=== PATIENT | male | born 1960 | race Caucasian/White ===

== ENCOUNTER 2018-01-02 06:50 | Emergency (ER) | payer BC, SELFPAY ==
[2018-01-02] MEDS ORDERED: Fentanyl 100 MCG/2 ML VIAL ONE ×3 (06:57→07:24)
[2018-01-02] MEDS ORDERED: fentaNYL Citrate/PF 2,000 MCG in Sodium Chloride 0.9% 60 ML IV SCH (07:00)
[2018-01-02 07:13] LABS: #Basophils 0.1 thou/uL (0.0-0.2); #Eosinphils 0.2 thou/uL (0.0-0.7); #Lymphocytes 2.3 thou/uL (1.20-3.40); #Monocytes 0.3 thou/uL (0.11-0.59); #Neutrophils 9.4 thou/uL (1.40-6.50); %Basophils 0.7 % (0.0-1.0); %Eosinophils 1.8 % (0.0-10.0); %Lymphocytes 18.7 % (21.0-51.0); %Monocytes 2.3 % (0.0-10.0); %Neutrophils 76.5 % (42.0-75.0); Hemoglobin 17.6 g/dL (14.0-18.0); Mean Corpuscular HGB CONC 35.8 g/dL (32.0-36.0); Mean Corpuscular Volume 94.8 fL (78.0-98.0); Mean Platelet Volume 8.2 fL (7.4-10.4); Platelet Count 190 thou/uL (130-400); RBC Distribution Width 11.3 % (11.5-14.5); Red Blood Cell (RBC) Count 5.19 mill/uL (4.70-6.10); White Blood Cell (WBC) Count 12.3 thou/uL (4.8-10.8)
[2018-01-02] MEDS ORDERED: Sodium Bicarb 50 MEQ/50 ML Abboject 8.4% SYRINGE ONE ×2 (07:14→07:15)
[2018-01-02] MEDS ORDERED: Sodium Bicarbonate 2.5 MEQ/5 ML VIAL ONE (07:14)
[2018-01-02] MEDS ORDERED: CEFAZOLIN 2 GM/50 ML-DEXTROSE 2 GM in Premix Bag 1 BAG IVPB SCH (07:15)
[2018-01-02 07:21] LABS: Actual Bicarbonate (HCO3a) 13.7 mEq/L (22-28); Analyzer IN Cardio ER; Base Excess (BEa) -15.5 mEq/L (-2.0 to +3.0); CO2 Tension 44.1 mmHg (35.0-45.0); Calcium, Ionized 1.04 mmol/L (1.12-1.30); Carboxyhemoglobin (COHb) 11.6 gm% (0.0-3.0); Hemoglobin (Hb) 16.7 g/dL (14.0-18.0); Potassium - ABG Lab 2.98 mmol/L (3.70-5.30)
[2018-01-02 07:21] LABS: INR-International Normal Ratio 1.1; Prothrombin Time 14.4 SEC (12.0-14.7)
[2018-01-02] MEDS ORDERED: KETAMINE 100 MG/ML (5ML VIAL) ONE (07:26)
[2018-01-02 07:27] LABS: pH, Arterial 7.11 (7.35-7.45)
[2018-01-02 07:28] LABS: ALT (SGPT) 28 U/L (8-55); AST (SGOT) 31 U/L (5-34); Alkaline Phosphatase 39 U/L (40-150); Anion Gap 22 mmol/L (10-20); BUN (Urea Nitrogen) 9 mg/dL (8.4-25.7); Bilirubin, Total 0.8 mg/dL (0.2-1.2); Calc. Creatinine Clearance 0 mL/min (70-130); Calcium 7.7 mg/dL (7.8-10.44); Carbon Dioxide 12 mmol/L (22-29); Chloride 114 mmol/L (98-107); Estimated GFR-MDRD 90; Glucose 134 mg/dL (70-105); Potassium 3.1 mmol/L (3.5-5.1); Sodium 145 mmol/L (136-145)
[2018-01-02 07:28] LABS: ALV-art Gradient 371.875 (0-20)
[2018-01-02] MEDS ORDERED: Erythromycin Base 0.5% Ophth Oint 3.5 gm Tube ONE (07:28)
[2018-01-02] MEDS ORDERED: Cyanide Antidote Kit ONE (07:33)
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
== END 2018-01-02 07:49 | disposition short-term general hospital (02) ==
LOC: ERS 06:50
DX: T20.20XA Burn of second degree of head, face, and neck, unspecified site, initial encounter (principal); T22.20XA Burn of second degree of shoulder and upper limb, except wrist and hand, unspecified site, initial encounter; T65.0X1A Toxic effect of cyanides, accidental (unintentional), initial encounter; J96.90 Respiratory failure, unspecified, unspecified whether with hypoxia or hypercapnia; X08.8XXA Exposure to other specified smoke, fire and flames, initial encounter
CPT/HCPCS: 36556; 51702; 71045; 80053; 82150; 82550; 82805; 83605; 85025; 85610; 85730; 86850; 86900; 86901; 90471; 94002; 96365; 96375; 96376; G0390; J3010; J7050